=== PATIENT | female | born 1980 | race Caucasian/White ===

== ENCOUNTER 2023-11-07 10:51 | Day surgery (SDC) | payer BC ==
[~2023-11-07] VITALS: Ht 165.1 cm; Wt 78.5 kg
[~2023-11-07 10:51] MED LIST: CEFAZOLIN SOD 2 GM in D5W 50 ML IV ONE
[2023-11-07] MEDS ORDERED: fentaNYL CITRATE/PF 100 MCG/2 ML AMP ONE ×2 (12:05→13:37)
[2023-11-07] MEDS ORDERED: MIDAZOLAM HCL 2 MG/2 ML VIAL (VERSED) ONE (12:06)
[2023-11-07] MEDS ORDERED: BUPIVACAINE /EPINEPHRINE/PF 0.25% 30 ML VIAL ONE (12:11)
[2023-11-07] MEDS ORDERED: SEVOFLURANE 15 MIN GAS INH ONE (12:11)
[2023-11-07] MEDS ORDERED: PROPOFOL 200MG/ 20ML VIAL (DIPRIVAN) IV ONE (12:11)
[2023-11-07] MEDS ORDERED: METOCLOPRAMIDE HCL 10 MG/2 ML VIAL ONE (12:11)
[2023-11-07] MEDS ORDERED: LR 1,000 ML IV.SOLN IV ONE (12:11)
[2023-11-07] MEDS ORDERED: ONDANSETRON HCL 4 MG/2 ML VIAL ONE ×2 (12:11→17:45)
[2023-11-07] MEDS ORDERED: NS IRRIG SOLN 1000 ML IR ONE (12:11)
[2023-11-07] MEDS ORDERED: DEXAMETHASONE SOD PHOSPHATE 4 MG/ML VIAL ONE (12:11)
[2023-11-07] MEDS ORDERED: NS 1000 ML IV.SOLN IV ONE (12:11)
[2023-11-07 12:35] VITALS: O2SAT 99
[2023-11-07] MEDS ORDERED: ROPIVACAINE HCL/PF 0.2% EPIDURAL 200 ML PLAST..BAG ONE (14:04)
[2023-11-07] MEDS ORDERED: OXYCODONE/ACETAMINOPHEN 5-325 TABLET PO PRN ×2 (15:00)
[2023-11-07] MEDS ORDERED: HYDROcodone/ACETAMIN 5-325 MG TAB (NORCO/ VICODIN) PO PRN (15:00)
[2023-11-07] MEDS ORDERED: ONDANSETRON HCL 4 MG/2 ML VIAL IVP PRN (15:00)
[2023-11-07] MEDS: HYDROmorphone 1 MG/ML INJ. CARTRIDGE IVP PRN (16:10)
[2023-11-07] MEDS ORDERED: HYDROmorphone 1 MG/ML INJ. CARTRIDGE ONE (16:11)
[2023-11-07] MEDS ORDERED: hydrALAZINE HCL 20 MG/ML VIAL IV PRN (16:15)
[2023-11-07] MEDS ORDERED: NALOXONE HCL 0.4 MG/ML AMP (NARCAN) IVP PRN (16:15)
[2023-11-07] MEDS ORDERED: HYDROmorphone 1 MG/ML INJ. CARTRIDGE IVP PRN ×2 (16:15)
[2023-11-07] MEDS: ONDANSETRON HCL 4 MG/2 ML VIAL IVP PRN (17:46)
[2023-11-07 18:26] VITALS: BP_SYST 143; PULSE 98; RESP 16
== END 2023-11-07 18:24 | disposition home or self-care (01) ==
LOC: SDS 10:51 → SMU 10:53 → SDS 18:24
PROVIDERS: ATTEND Specialist
DX: N92.6 Irregular menstruation, unspecified (principal); N72 Inflammatory disease of cervix uteri; D25.0 Submucous leiomyoma of uterus; R10.2 Pelvic and perineal pain; N80.9 Endometriosis, unspecified; I10 Essential (primary) hypertension; K21.9 Gastro-esophageal reflux disease without esophagitis; G43.909 Migraine, unspecified, not intractable, without status migrainosus; Z79.899 Other long term (current) drug therapy
CPT/HCPCS: 87081; 58552; 88307; J3490; J0690; J1100; J2765; J3465; J2405; J2704; J3010; J1170; J7060; J7120; J7030; C1727